=== PATIENT | male | born 2000 | race Caucasian/White ===

== ENCOUNTER 2018-01-11 20:14 | Emergency (ER) | payer BC ==
[2018-01-11] MEDS: methylPREDNISolone INJ 125 MG/2 ML VIAL (J2930) IM (20:39)
== END 2018-01-11 22:14 | disposition home or self-care (01) ==
LOC: M ED 20:14
DX: T63.441A Toxic effect of venom of bees, accidental (unintentional), initial encounter (principal); X58.XXXA Exposure to other specified factors, initial encounter; Y92.89 Other specified places as the place of occurrence of the external cause; Z87.892 Personal history of anaphylaxis; Z88.1 Allergy status to other antibiotic agents; Z91.030 Bee allergy status
CPT/HCPCS: J2930

== ENCOUNTER → 2020-12-05 | Outpatient (REF) | payer BC ==
[~2020-12-05] MED LIST: CIPR500T3 PO; DELT1TAB PO; EPIP0.3I2 IM; MESA24CASA PO
== END ==
LOC: M LABDRWAD 12:50
PROVIDERS: ATTEND Physician Assistant
DX: A69.20 Lyme disease, unspecified (principal)